=== PATIENT | female | born 1950 | race Caucasian/White ===

== ENCOUNTER → 2018-10-08 10:19 | Outpatient (BNVA) | payer MEDICARE, SELFPAY | PROVIDERS: Visit Provider Surgery | DX: L72.9 Follicular cyst of the skin and subcutaneous tissue, unspecified (principal) | CPT/HCPCS: 11422; 99203 ==

== ENCOUNTER 2022-06-03 16:19 | Outpatient (REF) | payer MEDICARE, SELFPAY ==
[2022-06-04 12:05] LABS: COVID-19 RT-PCR UVMMC Result Negative (Negative)
== END 2022-06-03 16:20 | disposition home or self-care (01) ==
LOC: NCHCN 16:19
PROVIDERS: PCP Family Medicine; Visit Provider Family Medicine
DX: Z20.822 Contact with and (suspected) exposure to COVID-19 (principal)
CPT/HCPCS: U0003

== ENCOUNTER → 2023-12-14 08:46 | Outpatient (BNVA) | payer MEDICARE, SELFPAY | PROVIDERS: PCP Family Medicine; Referring Provider Family Medicine; Visit Provider Surgery | DX: Z12.11 Encounter for screening for malignant neoplasm of colon (principal) ==

== ENCOUNTER 2024-01-04 06:58 | Day surgery (SDC) | payer MEDICARE, SELFPAY ==
--- NOTE | 2024-01-03 16:12 | W.ANESPRE ---
General Info Date of Service Date Performed: 01/04/24 Height: 4 ft 11.5 in Weight: 53.524 kg Body Mass Index (BMI): 23.4 Surgical Procedure: Operation Date: 01/04/24 08:20 Proposed Procedure Side Surgeon saul Blair MD Meds Allergies and Home Medications Allergies Allergy/AdvReac Type Severity Reaction Status Date / Time No Known Allergies Allergy Verified 01/04/24 07:19 Home Medication Medication Instructions Recorded albuterol sulfate 90 mcg/actuation 2 puff inhalation Q6H PRN 10/08/18 breath activated powder inhaler ascorbic acid (vitamin C) 100 mg 100 mg PO DAILY 11/23/23 tablet cholecalciferol (vitamin D3) 25 25 mcg PO DAILY 11/23/23 mcg (1,000 unit) tablet cyanocobalamin (vitamin B-12) 1,000 mcg PO DAILY 11/23/23 1,000 mcg capsule magnesium 250 mg tablet 250 mg PO DAILY 12/14/23 Current Visit Medications: Current Medications Generic Name Dose Route Start Last Admin Trade Name Bryanq PRN Reason Stop Dose Admin Ringer's Solution 1,000 mls @ 80 mls/hr 01/04/24 06:00 IV 01/04/24 23:59 INFUSION REJI IV Miscellaneous Supplies 1 each 01/04/24 06:00 Iv Access IV 01/04/24 23:59 DIRECTED REJI Sodium Chloride 0 ml 01/04/24 06:00 Normal Saline Flush 10 Ml Syr IV 01/04/24 23:59 PRN PRN Sodium Chloride 0 ml 01/04/24 06:00 Normal Saline 10 Ml Vial IJ 01/04/24 23:59 DIRECTED PRN Sterile Water 0 ml 01/04/24 06:00 Water,Injection,Sterile 10 Ml Vial IJ 01/04/24 23:59 DIRECTED PRN PFSH Active Problems Active Problems: Problem Status Onset Code Cyst of skin L72.9 Former smoker Z87.891 Scalp cyst L72.9 Medical History Medical History Exercise induced bronchospasm Surgical History Surgical History History of cataract extraction right Tobacco Smoking/Tobacco Use Status: Former Tobacco Use Alcohol Alcohol Intake: current Alcohol intake frequency: a few times a week Alcohol type: wine Substance Use Substance use: Never Substance use type: does not use Vital Signs and Lab Results Vital Signs Most Recent Vital Signs in EMR: Temp Pulse Resp BP Pulse Ox 36.3 C L 73 16 122/59 L 98 01/04/24 07:23 01/04/24 07:23 01/04/24 07:23 01/04/24 07:23 01/04/24 07:23 Lab Results Blood Type / Crossmatch: No Data to Display Complete Blood Count: No Data to Display Complete Metabolic Panel: No Data to Display Liver Function Panel: No Data to Display Coagulation Panel: No Data to Display Cardiac Panel: No Data to Display Arterial Blood Gas: No Data to Display Venous Blood Gas: No Data to Display Pancreas Panel: No Data to Display Thyroid Panel: No Data to Display Infectious Disease: No Data to Display Blood Cultures: No Data to Display Toxicology Panel: No Data to Display Anesthesia Assessment and Plan Anesthesia History Personal History: No History of Anesthesia Complications Family History: No Family History of Anesthesia Complications Exercise Tolerance Exercise Tolerance: Metabolic Equivalents>4 Cardiac & Pulmonary Exam Cardiac Exam: Normal S1/S2 Heart Sounds Pulmonary Exam: Clear Bilateral Breath Sounds Implantable Cardiac Device Does patient have a Pacemaker or an ICD?: No Airway Exam Known Difficult Airway: No Mallampati Class: 3 Mouth Opening: Normal (> 3cm) Thyromental Distance: Greater than 3 cm Neck Range of Motion: Full ROM Neck Circumference: Normal Teeth Condition: Normal Dentition ASA Classification ASA Score: ASA 2 Emergency Case?: No NPO Status NPO Status: NPO Clears >2 hours, Solids >8 hours Anesthesia Plan Resuscitation Status: Full Code Anesthesia Technique: General Anesthesia Airway Planned: Natural Airway Monitors Used: Standard Monitors Preoperative Comments:: 73 yo female for colo. Sig PMHx: RAD (exercise), former smoker. occ EtOH.
--- NOTE | 2024-01-03 18:17 | W.PM.DSUDISC ---
Date of service: 01/04/24 Time of Service: 08:38 Discharge Plan Disposition Patient Disposition: Home Condition: Good Discharge Details Reason For Visit: Screening colonoscopy Attending Provider: Ashutosh Blair Primary Care Provider: Shilpa Manrique Home Meds and New Rx's Prescriptions: Continued albuterol sulfate 90 mcg/actuation aerosol powdr breath activated 2 puff IH Q6H PRN magnesium 250 mg tablet 250 mg PO DAILY ascorbic acid (vitamin C) 100 mg tablet 100 mg PO DAILY cholecalciferol (vitamin D3) 25 mcg (1,000 unit) tablet 25 mcg PO DAILY cyanocobalamin (vitamin B-12) 1,000 mcg capsule 1,000 mcg PO DAILY Discontinued bisacodyl [Dulcolax (bisacodyl)] 5 mg tablet,delayed release (DR/EC) 5 mg PO ONCE Qty: 4 0RF Rx Instructions: Take per colonoscopy instructions provided by ordering providers office polyethylene glycol 3350 17 gram/dose powder 17 g PO ONCE Qty: 238 0RF Rx Instructions: Take per colonoscopy instructions provided by ordering providers office Discharge Instructions Additional Instructions: Jennifer, your colonoscopy today went very smoothly. I hope it was comfortable for you. It was totally normal. I did not see any signs of tumors, polyps, or anything worrisome at all. Current recommendations with a negative screening colonoscopy recommend another test in 10 years. 1. If tolerated, consume a soft, low fiber diet for 1-2 days. 2. Do not drive, drink alcohol, operate machinery, make critical decisions, or do activities that require coordination or balance for 24 hours. 3. Because air was put into your colon during the procedure, expelling air from your rectum (passing gas or farting) is normal. 4. You may not have a bowel movement for 1-3 days because of the colonoscopy prep. This is normal. 5. Go directly to the emergency room if you notice any of the following: Develop chills (warm to touch), or if you have a thermometer and your temperature is above 101 Difficulty breathing or difficultly swallowing Persistent vomiting Severe abdominal pain, other than gas cramps Severe chest pain Black, tarry stools Any bleeding ? exceeding one tablespoon 6. Call your physician if the site where your intravenous was started becomes red, swollen, painful, and warm to touch. 7. Your physician has reviewed your pre-procedure medications. Please continue to take those medications as previously ordered. You will be given specific information/education regarding any changes to your medications before leaving. Activity:: Activity as Tolerated Diet:: As Tolerated Discharge Orders Discharge Orders: Discharge Order (Routine); Ordered 01/03/24 Ordered By: Ashutosh Blair DS: Diagnosis Discharge Diagnosis (1) Encounter for screening colonoscopy: Status: Acute Asessment and Plan: Negative screening colonoscopy; recommend 10-year follow-up
--- NOTE | 2024-01-03 18:18 | COLE_ITS ---
Date of service: 01/04/24 Time of Service: 08:39 Colonoscopy Report Date of procedure: 01/04/24 Pre-op diagnosis general: Screening colonoscopy Post-op diagnosis procedure note: other (Negative screening colonoscopy) Procedure: Colonoscopy Surgeon: Ashutosh Blair Anesthesia Type: General:No Airway Estimated blood loss (mL): 0 Pathology: none sent Complications: None Disposition: same day Indications: Jennifer is a 73-year-old woman who needs her next screening colonoscopy Prep: Miralax/Dulcolax Procedure Start Time: 08:18 Procedure End Time: 08:32 Retraction Time: 7 Findings: Negative screening colonoscopy Procedure Description: After the induction of monitored anesthetic care, and with the patient in left lateral decubitus position, I began by performing an external anorectal exam.? Perineum and skin were normal, as was the anal verge.? There was no evidence of external hemorrhoids.? Next, I performed a digital rectal exam.? I did not appreciate any abnormal findings.? Next, I advanced a colonoscope into the rectal vault.? I performed retroflexion.? This was normal.? Using insufflation, I then advanced the colonoscope beyond the rectal folds and into the sigmoid colon before advancing towards the cecum.? The quality of the prep was outstanding.? The scope was noted to be in the cecum by identification of the ileocecal valve and appendiceal orifice.? I then began withdrawing the colonoscope using repeated irrigation as necessary for full evaluation of the colonic mucosa. ?Once the scope was withdrawn to the level of the rectum, great care was taken to examine portions of the rectal folds.? I did not see any signs of tumors, polyps, or any other worrisome pathology. Finally, the scope was withdrawn and the patient was brought to the same-day surgery recovery unit as the anesthetic wore off. ?The findings and instructions were shared with the patient prior to discharge. [place] Bowel Prep [place] Bowel Prep Right Colon: 3 Left Colon: 3 Transverse Colon: 3 Total Score: 9
[2024-01-04 07:23] VITALS: BP 122/59; PULSE 73; RESP 16; TEMP 36.3; O2SAT 98
[2024-01-04 07:44] VITALS: BMI 23.4
[2024-01-04] MEDS: Lactated Ringers 1,000 ML 80 ML IV (07:50)
[2024-01-04 08:36] VITALS: BP 102/49; PULSE 69; RESP 16; TEMP 36.4; O2SAT 99
--- NOTE | 2024-01-04 08:41 | W.ANESPOSTOP ---
Postoperative Evaluation Date, Time and Location Date Performed: 01/04/24 Time Performed: 08:41 Patient Location: Day Surgery Unit Vital Signs Most Recent Imported Vital Signs: Most Recent Vital Signs Temp Pulse Resp BP Pulse Ox 36.4 C L 69 16 102/49 L 99 01/04/24 08:36 01/04/24 08:36 01/04/24 08:36 01/04/24 08:36 01/04/24 08:36 Pain Score Most Recent Pain Score: Most Recent Pain Score Pain Level 0 01/04/24 08:36 Assessment Mental Status: Awake (Alert & Oriented to Patient Baseline) Airway and Respiratory Function: Patent airway with normal (patient baseline) respiratory exam Cardiovascular Function: Hemodynamically Stable Hydration Status: Adequately Hydrated Nausea & Vomiting: No Nausea or Vomiting Pain: Pt. Denies Any Pain Peripheral Nerve Block: Patient did not receive a nerve block
[2024-01-04 09:08] VITALS: BP 120/50; PULSE 70; RESP 16; TEMP 36.4; O2SAT 98
== END 2024-01-04 09:35 | disposition home or self-care (01) ==
LOC: SUR 06:59
PROVIDERS: PCP Family Medicine; Visit Provider Surgery
PROC: 0DJD8ZZ Inspection of Lower Intestinal Tract, Via Natural or Artificial Opening Endoscopic (ICD-10-PCS; CPT 45378; principal; 2024-01-04 08:15)
DX: Z12.11 Encounter for screening for malignant neoplasm of colon (principal)
CPT/HCPCS: G0121; J2704

== ENCOUNTER 2025-01-16 01:04 | Outpatient (CLI) | payer MEDICARE, SELFPAY ==
--- NOTE | 2025-01-16 | DI.DEXA_ITS ---
Exam(s) XR DEXA BONE DENSITY W/WO ZO EXAM: XR DEXA BONE DENSITY W/WO OZ CLINICAL HISTORY: MENOPAUSE, Z78.0, ASYMPTOMATIC MENOPAUSAL STATE TECHNIQUE: HoloeMithilaHaat Horizon C densitometer analysis of left hip, lumbar spine and left forearm. Lat eral survey image of the thoracic and lumbar spine. COMPARISON: No exams were available for comparison FINDINGS: Lateral view of the thoracic and lumbar spine shows no evidence of compression fractures. Bone mineral density measurements of the lumbar spine correspond to a total T-score of -2.4, in the osteopenic range. Bone mineral density measurements of the left hip correspond to a total T-score of -2.2. The femora l neck T-score is -2.6, in the mildly osteoporotic range.. Theleft forearm bone mineral density measurements correspond to a T-score of the distal 3rd of -2.7, in the mildly osteoporotic range.. IMPRESSION: Osteopenia of the lumbar spine. 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
== END 2025-01-16 01:24 ==
LOC: DI 01:04
PROVIDERS: PCP Family Medicine; Visit Provider Family Medicine
DX: Z78.0 Asymptomatic menopausal state (principal); Z13.820 Encounter for screening for osteoporosis; M85.89 Other specified disorders of bone density and structure, multiple sites
CPT/HCPCS: 77080

== ENCOUNTER 2025-08-14 09:41 | Outpatient (REF) | payer MEDICARE, SELFPAY ==
[2025-08-14 15:41] LABS: ALT 24 U/L (14-59); AST 18 U/L (15-37); Albumin 3.7 g/dL (3.4-5.0); Alkaline Phosphatase 86 U/L (46-116); Anion Gap 9.3 mmol/L (3-11); BUN 9 mg/dL (7-18); Bilirubin, Total 0.3 mg/dL (0.2-1.0); CO2 27.7 mmol/L (21.0-32.0); Calcium 9.5 mg/dL (8.5-10.1); Calculated LDL 103 mg/dL (<100); Chloride 100 mmol/L (98-107); Cholesterol 205 mg/dL (<200); Estimated GFR 77.75 (mL/min/1.73m2); Glucose 100 mg/dL (74-106); HDL Cholesterol 82 mg/dL (>or=50); Potassium 4.8 mmol/L (3.5-5.1); Sodium 137 mmol/L (136-145); Total Protein 7.1 g/dL (6.4-8.2); Triglyceride 100 mg/dL (<150); Vitamin D 25 Total 92 ng/mL (30-100)
== END 2025-08-14 09:42 | disposition home or self-care (01) ==
LOC: NCHCN 09:41
PROVIDERS: PCP Family Medicine; Visit Provider Family Medicine
DX: Z00.00 Encounter for general adult medical examination without abnormal findings (principal)
CPT/HCPCS: 80053; 80061; 82306